=== PATIENT | female | born 1980 | race Caucasian/White ===

== ENCOUNTER 2018-05-17 04:13 | Inpatient (IN) | payer BC ==
[2018-05-17] MEDS ORDERED: Nalbuphine 20 MG/ML 1 ML Syringe IVPUSH PRN (04:58)
[2018-05-17] MEDS ORDERED: ceFAZolin 2 GM in Premix Bag 1 BAG IV ONE (05:00)
[2018-05-17] MEDS ORDERED: Ondansetron 4 MG/2 ML SDV IVPUSH PRN ×2 (05:03→07:38)
[2018-05-17] MEDS ORDERED: Sodium Chloride 0.9% 10 ML Syringe FLUSH PRN (05:03)
[2018-05-17] MEDS ORDERED: Oxytocin/Lactated Ringers 10 UNIT/1,000 ML BAG IV SCH ×2 (05:15)
[2018-05-17] MEDS ORDERED: ceFAZolin/Dextrose,Iso-Osmotic 2 GM/50 ML Duplex Bag IV ONE (05:32)
[2018-05-17] MEDS: Lactated Ringers 1,000 ML IV SCH ×4 (06:01→21:06)
[2018-05-17] MEDS ORDERED: ePHEDrine 50 MG/ML SDV IVPUSH PRN (07:38)
--- NOTE | 2018-05-17 07:41 | PCM.PREANE ---
Preanesthetic Assessment - Anesthesia/Transfusion/Family Hx Anesthesia History: Prior Anesthesia Without Reaction Family History of Anesthesia Reaction: No Transfusion History: No Prior Transfusion(s) Intubation History: Unknown - Review of Systems General: No Symptoms Pulmonary: No Symptoms Cardiovascular: No Symptoms (PIH noted.), Dyspnea on Exertion Gastrointestinal: No Symptoms (GERD) Neurological: Headache (migraines) Other: Reports: Easy Bruising, Diabetes (Gestational DM with diet controlled treatment), Depression, Anxiety - Physical Assessment NPO Status Date: 05/17/18 NPO Status Time: 08:30 Pulse: 120 O2 Sat by Pulse Oximetry: 99 Respiratory Rate: 16 Blood Pressure: 143/86 Temperature: 36.9 C Height: 1.6 m Weight: 127.006 kg ASA Class: 2 Mental Status: Alert & Oriented x3 Airway Class: Mallampati = 3 Dentition: Reports: Normal Dentition, Caries Thyro-Mental Finger Breadths: 3 Mouth Opening Finger Breadths: 2 ROM/Head Extension: Full Lungs: Clear to Auscultation, Normal Respiratory Effort Cardiovascular: Regular Rate, Regular Rhythm, No Murmurs - Lab Values: Laboratory Last Values WBC 9.25 K/mm3 (3.98-10.04) 05/17/18 05:30 RBC 4.89 M/mm3 (3.98-5.22) 05/17/18 05:30 Hgb 11.5 gm/L (11.2-15.7) 05/17/18 05:30 Hct 36.0 % (34.1-44.9) 05/17/18 05:30 MCV 73.6 fl (79.4-94.8) L 05/17/18 05:30 MCH 23.5 pg (25.6-32.2) L 05/17/18 05:30 MCHC 31.9 g/dl (32.2-35.5) L 05/17/18 05:30 RDW Std Deviation 44.4 fL (36.4-46.3) 05/17/18 05:30 Plt Count 248 K/mm3 (182-369) 05/17/18 05:30 MPV 11.2 fl (9.4-12.3) 05/17/18 05:30 Neut % (Auto) 80.9 % (34.0-71.1) H 05/17/18 05:30 Lymph % (Auto) 11.5 % (19.3-51.7) L 05/17/18 05:30 [place] % (Auto) 6.6 % (4.7-12.5) 05/17/18 05:30 Eos % (Auto) 0.6 (0.7-5.8) L 05/17/18 05:30 Baso % (Auto) 0.2 % (0.1-1.2) 05/17/18 05:30 Neut # (Auto) 7.48 K/mm3 (1.56-6.13) H 05/17/18 05:30 Lymph # (Auto) 1.06 K/mm3 (1.18-3.74) L 05/17/18 05:30 [place] # (Auto) 0.61 K/mm3 (0.24-0.36) H 05/17/18 05:30 Eos # (Auto) 0.06 K/mm3 (0.04-0.36) 05/17/18 05:30 Baso # (Auto) 0.02 K/mm3 (0.01-0.08) 05/17/18 05:30 Manual Slide Review Abnormal smear 05/17/18 05:30 BUN 10 mg/dL (7-18) 05/17/18 05:30 Creatinine 0.8 mg/dL (0.55-1.02) 05/17/18 05:30 Est Cr Clr Drug Dosing 81.19 mL/min 05/17/18 05:30 Estimated GFR (MDRD) > 60 mL/min (>60) 05/17/18 05:30 Uric Acid 4.3 mg/dL (2.6-6.0) 05/17/18 05:30 AST 17 U/L (15-37) 05/17/18 05:30 ALT 23 U/L (14-59) 05/17/18 05:30 Lactate Dehydrogenase 133 U/L (81-234) 05/17/18 05:30 Labs reviewed and noted and within acceptable ranges to proceed with epidural if desired. - Allergies Allergies/Adverse Reactions: Allergies Allergy/AdvReac Type Severity Reaction Status Date / Time Penicillins Allergy Rash Verified 05/17/18 04:57 - Anesthesia Plan Pre-Op Medication Ordered: None - Acknowledgements Anesthesia Type Planned: Epidural Pt an Appropriate Candidate for the Planned Anesthesia: Yes Alternatives and Risks of Anesthesia Discussed w Pt/Guardian: Yes Pt/Guardian Understands and Agrees with Anesthesia Plan: Yes PreAnesthesia Questionnaire AD TAKER History: Reports: Spontaneous Other OB/BYN History: SAB x4 Endocrine/Metabolic History: Reports: Diabetes, Gestational - Past Surgical History Female Surgical History: Reports: Other (See Below) Other Female Surgeries/Procedures: hysteroscopy - SUBSTANCE USE Smoking Status *Q: Never Smoker Second Hand Smoke Exposure: No Recreational Drug Use History: No - CURRENT (IN HOUSE) MEDS Current Meds: Current Medications Cefazolin Sodium/Dextrose 1 gm (/ Premix) 50 mls @ 100 mls/hr IV Q8H MARQUES Lactated Ringer's (Ringers, Lactated) 1,000 mls @ 100 mls/hr IV ASDIRECTED MARQUES Last Admin: 05/17/18 06:01 Dose: 100 mls/hr Oxytocin/Lactated Ringer's (Pitocin In Lr 10 Units/1,000 Ml) 10 unit in 1,000 mls @ 12 mls/hr IV TITRATE MARQUES; Protocol Last Admin: 05/17/18 07:31 Dose: 2 munits/min, 12 mls/hr Oxytocin/Lactated Ringer's (Pitocin In Lr 10 Units/1,000 Ml) 10 unit in 1,000 mls @ 500 mls/hr IV .CONTINUOUS MARQUES Nalbuphine HCl (Nubain) 10 mg IVPUSH Q2H PRN PRN Reason: pain Ondansetron HCl (Zofran) 4 mg IVPUSH Q4H PRN PRN Reason: Nausea/Vomiting Sodium Chloride (Saline Flush) 10 ml FLUSH ASDIRECTED PRN PRN Reason: Keep Vein Open Discontinued Medications Cefazolin Sodium/Dextrose (Ancef) Confirm Administered Dose 2 gm IV .STK-MED ONE Stop: 05/17/18 05:33 Last Admin: 05/17/18 06:02 Dose: Not Given Cefazolin Sodium/Dextrose 2 gm (/ Premix) 50 mls @ 100 mls/hr IV ONETIME ONE Stop: 05/17/18 05:29 Last Admin: 05/17/18 06:02 Dose: 100 mls/hr
[2018-05-17] MEDS ORDERED: Bupivacaine/fentaNYL/NS 100 ML Bag EPIDUR SCH (07:45)
[2018-05-17] MEDS ORDERED: Phenylephrine 1 MG in Sodium Chloride 0.9% 10 ML IV SCH (07:45)
[2018-05-17] MEDS: fentaNYL 100 MCG/2 ML SDV EPIDUR PRN (12:05)
[2018-05-17] MEDS: ceFAZolin 1 GM in Premix Bag 1 BAG IV SCH ×2 (14:06→21:04)
[2018-05-17] MEDS ORDERED: Acetaminophen 325 MG Tab PO PRN (14:22)
[2018-05-18] MEDS: fentaNYL 100 MCG/2 ML SDV EPIDUR PRN ×2 (00:35→08:14)
--- NOTE | 2018-05-18 00:45 | PCM.LDHP ---
L&D History of Present Illness - General Date of Service: 05/18/18 Admit Problem/Dx: Patient Status Order with Admit Dx/Problem 05/17/18 07:44 Patient Status [ADT] Routine Admission Diagnosis/Problem Admission Diagnosis/Problem Source of Information: Patient History Limitations: Reports: No Limitations - History of Present Illness Introduction:: 37 year at 38w1d here with SROM. Irregular painless contractions. PNC with myself complicated by possible uterine synecia and gestational diabetes. 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 Other OB/BYN History: SAB x4 Endocrine/Metabolic History: Reports: Diabetes, Gestational - Past Surgical History Female Surgical History: Reports: Other (See Below) Other Female Surgeries/Procedures: hysteroscopy Social & Family History - Tobacco Use Smoking Status *Q: Never Smoker Second Hand Smoke Exposure: No - Recreational Drug Use Recreational Drug Use: No H&P Review of Systems - Review of Systems: Review Of Systems: See Below General: Reports: No Symptoms HEENT: Reports: No Symptoms Pulmonary: Reports: No Symptoms Cardiovascular: Reports: No Symptoms Gastrointestinal: Reports: No Symptoms Genitourinary: Reports: No Symptoms Musculoskeletal: Reports: No Symptoms Skin: Reports: No Symptoms Psychiatric: Reports: No Symptoms Neurological: Reports: No Symptoms Hematologic/Lymphatic: Reports: No Symptoms Immunologic: Reports: No Symptoms L&D Exam - Exam Exam: See Below - Vital Signs Vital Signs: Last Vital Signs Temp 36.9 C 05/17/18 09:01 Pulse 120 H 05/17/18 09:01 Resp 16 05/17/18 09:01 BP 143/86 H 05/17/18 09:01 Pulse Ox 99 05/17/18 09:01 Weight: 127.006 kg - OB Specific Contraction Intensity: Moderate Movement: Active Heart Rate (FHR) Variability: Moderate (6-25 bmp) Presentation: Vertex - Sanders Score Sanders Score Cervix Position: Midposition Sanders Score Consistency: Medium Sanders Score Effacement: 51-70% Sanders Score Dilation: 3-4 cm Sanders Score 's Station: -2 Sanders Score Total: 7 - Exam General: Alert, Oriented HEENT: PERRLA, Conjunctiva Clear, EACs Clear, EOMI, Hearing Intact, Mucosa Moist & [place], Nares Patent, Normal Nasal Septum, Posterior Pharynx Clear, TMs Clear Neck: Supple, Trachea Midline Lungs: Clear to Auscultation, Normal Respiratory Effort Cardiovascular: Regular Rate, Regular Rhythm GI/Abdominal Exam: Normal Bowel Sounds, Soft, Non-Tender, No Organomegaly, No Distention, No Abnormal Bruit, No Mass, Pelvis Stable Genitourinary: Normal external exam, Normal bimanual exam, Normal speculum exam Back Exam: Normal Inspection, Full Range of Motion Extremities: Normal Inspection, Normal Range of Motion, Non-Tender, No Pedal Edema, Normal Capillary Refill Skin: Warm, Dry, Intact Neurological: Cranial Nerves Intact, Reflexes Equal Bilateral Psychiatric: Alert, Normal Affect, Normal Mood - Patient Data Lab Results Last 24 hrs: Laboratory Results - last 24 hr 05/17/18 05/17/18 05/17/18 Range/Units 05:30 05:30 08:38 WBC 9.25 (3.98-10.04) K/mm3 RBC 4.89 (3.98-5.22) M/mm3 Hgb 11.5 (11.2-15.7) gm/L Hct 36.0 (34.1-44.9) % MCV 73.6 L (79.4-94.8) fl MCH 23.5 L (25.6-32.2) pg MCHC 31.9 L (32.2-35.5) g/dl RDW Std Deviation 44.4 (36.4-46.3) fL Plt Count 248 (182-369) K/mm3 MPV 11.2 (9.4-12.3) fl Neut % (Auto) 80.9 H (34.0-71.1) % Lymph % (Auto) 11.5 L (19.3-51.7) % [place] % (Auto) 6.6 (4.7-12.5) % Eos % (Auto) 0.6 L (0.7-5.8) Baso % (Auto) 0.2 (0.1-1.2) % Neut # (Auto) 7.48 H (1.56-6.13) K/mm3 Lymph # (Auto) 1.06 L (1.18-3.74) K/mm3 [place] # (Auto) 0.61 H (0.24-0.36) K/mm3 Eos # (Auto) 0.06 (0.04-0.36) K/mm3 Baso # (Auto) 0.02 (0.01-0.08) K/mm3 Manual Slide Review Abnormal smear BUN 10 (7-18) mg/dL Creatinine 0.8 (0.55-1.02) mg/dL Est Cr Clr Drug Dosing 81.19 mL/min Estimated GFR (MDRD) > 60 (>60) mL/min POC Glucose 96 (70-105) mg/dL Uric Acid 4.3 (2.6-6.0) mg/dL AST 17 (15-37) U/L ALT 23 (14-59) U/L Lactate Dehydrogenase 133 (81-234) U/L 05/17/18 05/17/18 05/17/18 Range/Units 11:08 15:59 18:27 WBC (3.98-10.04) K/mm3 RBC (3.98-5.22) M/mm3 Hgb (11.2-15.7) gm/L Hct (34.1-44.9) % MCV (79.4-94.8) fl MCH (25.6-32.2) pg MCHC (32.2-35.5) g/dl RDW Std Deviation (36.4-46.3) fL Plt Count (182-369) K/mm3 MPV (9.4-12.3) fl Neut % (Auto) (34.0-71.1) % Lymph % (Auto) (19.3-51.7) % [place] % (Auto) (4.7-12.5) % Eos % (Auto) (0.7-5.8) Baso % (Auto) (0.1-1.2) % Neut # (Auto) (1.56-6.13) K/mm3 Lymph # (Auto) (1.18-3.74) K/mm3 [place] # (Auto) (0.24-0.36) K/mm3 Eos # (Auto) (0.04-0.36) K/mm3 Baso # (Auto) (0.01-0.08) K/mm3 Manual Slide Review BUN (7-18) mg/dL Creatinine (0.55-1.02) mg/dL Est Cr Clr Drug Dosing mL/min Estimated GFR (MDRD) (>60) mL/min POC Glucose 85 75 97 (70-105) mg/dL Uric Acid (2.6-6.0) mg/dL AST (15-37) U/L ALT (14-59) U/L Lactate Dehydrogenase (81-234) U/L 05/17/18 Range/Units 21:11 WBC (3.98-10.04) K/mm3 RBC (3.98-5.22) M/mm3 Hgb (11.2-15.7) gm/L Hct (34.1-44.9) % MCV (79.4-94.8) fl MCH (25.6-32.2) pg MCHC (32.2-35.5) g/dl RDW Std Deviation (36.4-46.3) fL Plt Count (182-369) K/mm3 MPV (9.4-12.3) fl Neut % (Auto) (34.0-71.1) % Lymph % (Auto) (19.3-51.7) % [place] % (Auto) (4.7-12.5) % Eos % (Auto) (0.7-5.8) Baso % (Auto) (0.1-1.2) % Neut # (Auto) (1.56-6.13) K/mm3 Lymph # (Auto) (1.18-3.74) K/mm3 [place] # (Auto) (0.24-0.36) K/mm3 Eos # (Auto) (0.04-0.36) K/mm3 Baso # (Auto) (0.01-0.08) K/mm3 Manual Slide Review BUN (7-18) mg/dL Creatinine (0.55-1.02) mg/dL Est Cr Clr Drug Dosing mL/min Estimated GFR (MDRD) (>60) mL/min POC Glucose 100 (70-105) mg/dL Uric Acid (2.6-6.0) mg/dL AST (15-37) U/L ALT (14-59) U/L Lactate Dehydrogenase (81-234) U/L Result Diagrams: 05/17/18 05:30 05/17/18 05:30 Problem List Initiated/Reviewed/Updated: Yes Orders Last 24hrs: Active Orders 24 hr Category Date Time Status Patient Status [ADT] Routine ADT 05/17/18 07:44 Active Activity as Tolerated [RC] PFP Care 05/17/18 04:58 Active Communication Order [RC] ASDIRECTED Care 05/17/18 04:58 Active Communication Order [RC] ASDIRECTED Care 05/17/18 09:16 Active Heart Tones [RC] ASDIRECTED Care 05/17/18 05:06 Active Notify Provider [RC] ASDIRECTED Care 05/17/18 07:38 Active Notify Provider [RC] PFP Care 05/17/18 04:58 Active Notify Provider [RC] PRN Care 05/17/18 04:58 Active Oxygen Therapy [RC] ASDIRECTED Care 05/17/18 07:38 Active Peripheral IV Care [RC] . DIRECTED Care 05/17/18 05:06 Active Pulse Oximetry [RC] ASDIRECTED Care 05/17/18 07:38 Active Pump Management, Intrathecal [RC] ASDIRECTED Care 05/17/18 05:06 Active Vital Signs [RC] PER UNIT ROUTINE Care 05/17/18 04:58 Active RAPID PLASMA REAGIN,RPR [CHEM] Routine Lab 05/17/18 05:30 Received Acetaminophen [Tylenol] Med 05/17/18 14:22 Active 650 mg PO Q4H PRN Bupivacaine/fentaNYL/NS [fentaNYL/Bupivacaine/NS 2 MCG- Med 05/17/18 07:45 Active 0.125% 100 ML] 100 ml EPIDUR ASDIRECTED Lactated Ringers [Ringers, Lactated] 1,000 ml Med 05/17/18 05:00 Active IV ASDIRECTED Nalbuphine [Nubain] Med 05/17/18 04:58 Active 10 mg IVPUSH Q2H PRN Ondansetron [Zofran] Med 05/17/18 07:38 Active 4 mg IVPUSH ONETIME PRN Ondansetron [Zofran] Med 05/17/18 05:03 Active 4 mg IVPUSH Q4H PRN Oxytocin/Lactated Ringers [Pitocin in LR 10 Units/1,000 Med 05/17/18 05:15 Active ML] 10 unit in 1,000 ml IV .CONTINUOUS Oxytocin/Lactated Ringers [Pitocin in LR 10 Units/1,000 Med 05/17/18 05:15 Active ML] 10 unit in 1,000 ml IV TITRATE Phenylephrine [Richard-Synephrine] 1 mg Med 05/17/18 07:45 Active Sodium Chloride 0.9% [Normal Saline] 10 ml IV TITRATE Sodium Chloride 0.9% [Saline Flush] Med 05/17/18 05:03 Active 10 ml FLUSH ASDIRECTED PRN ceFAZolin [Ancef] 1 gm Med 05/17/18 13:00 Active Premix Bag 1 bag IV Q8H ePHEDrine [ePHEDrine Sulfate] Med 05/17/18 07:38 Active 5 mg IVPUSH ASDIRECTED PRN fentaNYL [Sublimaze] Med 05/17/18 07:38 Active 100 mcg EPIDUR Q3H PRN Electronic Heart Tones Ext w TOCO [WOMSER] Oth 05/17/18 04:58 Ordered Routine Electronic Heart Tones Internal [WOMSER] Per Unit Oth 05/17/18 04:58 Ordered Routine PIH Panel [OM.PC] Routine Oth 05/17/18 05:03 Ordered Peripheral IV Insertion Adult [OM.PC] Routine Oth 05/17/18 04:58 Ordered Resuscitation Status Routine Resus Stat 05/17/18 04:58 Ordered Medication Orders Acetaminophen (Tylenol) 650 mg PO Q4H PRN PRN Reason: Pain (mild 1-3) Last Admin: 05/17/18 14:42 Dose: 650 mg Ephedrine Sulfate (Ephedrine Sulfate) 5 mg IVPUSH ASDIRECTED PRN PRN Reason: Hypotension Fentanyl (Sublimaze) 100 mcg EPIDUR Q3H PRN PRN Reason: Pain Last Admin: 05/18/18 00:35 Dose: 100 mcg Admin: 05/17/18 12:05 Dose: 100 mcg Fentanyl/Bupivacaine HCl (Fentanyl/Bupivacaine/Ns 2 Mcg-0.125% 100 Ml) 100 ml EPIDUR ASDIRECTED MARQUES Last Admin: 05/17/18 12:05 Dose: 100 ml Cefazolin Sodium/Dextrose 1 gm (/ Premix) 50 mls @ 100 mls/hr IV Q8H [facility] Last Admin: 05/17/18 21:04 Dose: 100 mls/hr Infusion: 05/17/18 14:36 Dose: 100 mls/hr Admin: 05/17/18 14:06 Dose: 100 mls/hr Lactated Ringer's (Ringers, Lactated) 1,000 mls @ 100 mls/hr IV ASDIRECTED MARQUES Last Admin: 05/17/18 21:06 Dose: 100 mls/hr Infusion: 05/17/18 21:06 Dose: 100 mls/hr Admin: 05/17/18 14:05 Dose: 100 mls/hr Infusion: 05/17/18 14:05 Dose: 100 mls/hr Admin: 05/17/18 12:19 Dose: 100 mls/hr Infusion: 05/17/18 12:19 Dose: 100 mls/hr Admin: 05/17/18 06:01 Dose: 100 mls/hr Oxytocin/Lactated Ringer's (Pitocin In Lr 10 Units/1,000 Ml) 10 unit in 1,000 mls @ 12 mls/hr IV TITRATE MARQUES; Protocol Last Titration: 05/17/18 23:00 Dose: 8 munits/min, 48 mls/hr Titration: 05/17/18 22:20 Dose: 6 munits/min, 36 mls/hr Titration: 05/17/18 20:50 Dose: 5 munits/min, 30 mls/hr Titration: 05/17/18 20:20 Dose: 4 munits/min, 24 mls/hr Titration: 05/17/18 19:44 Dose: 2 munits/min, 12 mls/hr Titration: 05/17/18 15:06 Dose: 0 munits/min, 0 mls/hr Titration: 05/17/18 14:25 Dose: 4 munits/min, 24 mls/hr Titration: 05/17/18 14:10 Dose: 8 munits/min, 48 mls/hr Titration: 05/17/18 10:00 Dose: 6 munits/min, 36 mls/hr Titration: 05/17/18 08:05 Dose: 4 munits/min, 24 mls/hr Admin: 05/17/18 07:31 Dose: 2 munits/min, 12 mls/hr Oxytocin/Lactated Ringer's (Pitocin In Lr 10 Units/1,000 Ml) 10 unit in 1,000 mls @ 500 mls/hr IV .CONTINUOUS MARQUES Phenylephrine HCl 1 mg/ Sodium (Chloride) 10.1 mls @ 1 mls/sec IV TITRATE MARQUES; Protocol Nalbuphine HCl (Nubain) 10 mg IVPUSH Q2H PRN PRN Reason: pain Ondansetron HCl (Zofran) 4 mg IVPUSH Q4H PRN PRN Reason: Nausea/Vomiting Ondansetron HCl (Zofran) 4 mg IVPUSH ONETIME PRN PRN Reason: Nausea/Vomiting Sodium Chloride (Saline Flush) 10 ml FLUSH ASDIRECTED PRN PRN Reason: Keep Vein Open Assessment/Plan Comment:: 37 year old here with SROM. Doing well. Pitocin. Anticipate unless otherwise indicated
--- NOTE | 2018-05-18 00:47 | PCM.PNLD ---
Labor Progress Note - VS & Meds Vital Signs: Last Vital Signs Temp 36.9 C 05/17/18 09:01 Pulse 120 H 05/17/18 09:01 Resp 16 05/17/18 09:01 BP 143/86 H 05/17/18 09:01 Pulse Ox 99 05/17/18 09:01 Active Medications: Current Medications Acetaminophen (Tylenol) 650 mg PO Q4H PRN PRN Reason: Pain (mild 1-3) Last Admin: 05/17/18 14:42 Dose: 650 mg Ephedrine Sulfate (Ephedrine Sulfate) 5 mg IVPUSH ASDIRECTED PRN PRN Reason: Hypotension Fentanyl (Sublimaze) 100 mcg EPIDUR Q3H PRN PRN Reason: Pain Last Admin: 05/18/18 00:35 Dose: 100 mcg Fentanyl/Bupivacaine HCl (Fentanyl/Bupivacaine/Ns 2 Mcg-0.125% 100 Ml) 100 ml EPIDUR ASDIRECTED MARQUES Last Admin: 05/17/18 12:05 Dose: 100 ml Cefazolin Sodium/Dextrose 1 gm (/ Premix) 50 mls @ 100 mls/hr IV Q8H MARQUES Last Admin: 05/17/18 21:04 Dose: 100 mls/hr Lactated Ringer's (Ringers, Lactated) 1,000 mls @ 100 mls/hr IV ASDIRECTED MARQUES Last Admin: 05/17/18 21:06 Dose: 100 mls/hr Oxytocin/Lactated Ringer's (Pitocin In Lr 10 Units/1,000 Ml) 10 unit in 1,000 mls @ 12 mls/hr IV TITRATE MARQUES; Protocol Last Titration: 05/17/18 23:00 Dose: 8 munits/min, 48 mls/hr Oxytocin/Lactated Ringer's (Pitocin In Lr 10 Units/1,000 Ml) 10 unit in 1,000 mls @ 500 mls/hr IV .CONTINUOUS MARQUES Phenylephrine HCl 1 mg/ Sodium (Chloride) 10.1 mls @ 1 mls/sec IV TITRATE MARQUES; Protocol Nalbuphine HCl (Nubain) 10 mg IVPUSH Q2H PRN PRN Reason: pain Ondansetron HCl (Zofran) 4 mg IVPUSH Q4H PRN PRN Reason: Nausea/Vomiting Ondansetron HCl (Zofran) 4 mg IVPUSH ONETIME PRN PRN Reason: Nausea/Vomiting Sodium Chloride (Saline Flush) 10 ml FLUSH ASDIRECTED PRN PRN Reason: Keep Vein Open Discontinued Medications Cefazolin Sodium/Dextrose (Ancef) Confirm Administered Dose 2 gm IV .STK-MED ONE Stop: 05/17/18 05:33 Last Admin: 05/17/18 06:02 Dose: Not Given Cefazolin Sodium/Dextrose 2 gm (/ Premix) 50 mls @ 100 mls/hr IV ONETIME ONE Stop: 05/17/18 05:29 Last Admin: 05/17/18 06:02 Dose: 100 mls/hr - Uterine Contractions Uterine Monitoring Mode: External [place] Contraction Intensity: Moderate Uterine Resting Tone: Soft - Monitoring Monitor Mode: External Ultrasound Heart Rate (FHR) Baseline: 140 Heart Rate (FHR) Variability: Moderate (6-25 bmp) Accelerations: Present, 15x15 Decelerations: None Strip Review: Category I - Vaginal Exam Dilation (cm): 3 Effacement (Percent): 80 Station: -3 - Labor Progress (Free Text) Labor Progress: Pitocin off as occasional early vs late decels. Some change. Restart if no change
--- NOTE | 2018-05-18 00:49 | PCM.PNLD ---
Labor Progress Note - VS & Meds Vital Signs: Last Vital Signs Temp 36.9 C 05/17/18 09:01 Pulse 120 H 05/17/18 09:01 Resp 16 05/17/18 09:01 BP 143/86 H 05/17/18 09:01 Pulse Ox 99 05/17/18 09:01 Active Medications: Current Medications Acetaminophen (Tylenol) 650 mg PO Q4H PRN PRN Reason: Pain (mild 1-3) Last Admin: 05/17/18 14:42 Dose: 650 mg Ephedrine Sulfate (Ephedrine Sulfate) 5 mg IVPUSH ASDIRECTED PRN PRN Reason: Hypotension Fentanyl (Sublimaze) 100 mcg EPIDUR Q3H PRN PRN Reason: Pain Last Admin: 05/18/18 00:35 Dose: 100 mcg Fentanyl/Bupivacaine HCl (Fentanyl/Bupivacaine/Ns 2 Mcg-0.125% 100 Ml) 100 ml EPIDUR ASDIRECTED MARQUES Last Admin: 05/17/18 12:05 Dose: 100 ml Cefazolin Sodium/Dextrose 1 gm (/ Premix) 50 mls @ 100 mls/hr IV Q8H MARQUES Last Admin: 05/17/18 21:04 Dose: 100 mls/hr Lactated Ringer's (Ringers, Lactated) 1,000 mls @ 100 mls/hr IV ASDIRECTED MARQUES Last Admin: 05/17/18 21:06 Dose: 100 mls/hr Oxytocin/Lactated Ringer's (Pitocin In Lr 10 Units/1,000 Ml) 10 unit in 1,000 mls @ 12 mls/hr IV TITRATE MARQUES; Protocol Last Titration: 05/17/18 23:00 Dose: 8 munits/min, 48 mls/hr Oxytocin/Lactated Ringer's (Pitocin In Lr 10 Units/1,000 Ml) 10 unit in 1,000 mls @ 500 mls/hr IV .CONTINUOUS MARQUES Phenylephrine HCl 1 mg/ Sodium (Chloride) 10.1 mls @ 1 mls/sec IV TITRATE MARQUES; Protocol Nalbuphine HCl (Nubain) 10 mg IVPUSH Q2H PRN PRN Reason: pain Ondansetron HCl (Zofran) 4 mg IVPUSH Q4H PRN PRN Reason: Nausea/Vomiting Ondansetron HCl (Zofran) 4 mg IVPUSH ONETIME PRN PRN Reason: Nausea/Vomiting Sodium Chloride (Saline Flush) 10 ml FLUSH ASDIRECTED PRN PRN Reason: Keep Vein Open Discontinued Medications Cefazolin Sodium/Dextrose (Ancef) Confirm Administered Dose 2 gm IV .STK-MED ONE Stop: 05/17/18 05:33 Last Admin: 05/17/18 06:02 Dose: Not Given Cefazolin Sodium/Dextrose 2 gm (/ Premix) 50 mls @ 100 mls/hr IV ONETIME ONE Stop: 05/17/18 05:29 Last Admin: 05/17/18 06:02 Dose: 100 mls/hr - Uterine Contractions Uterine Monitoring Mode: External [place] Contraction Intensity: Moderate Uterine Resting Tone: Soft - Monitoring Monitor Mode: External Ultrasound Heart Rate (FHR) Baseline: 140 Heart Rate (FHR) Variability: Moderate (6-25 bmp) Accelerations: Present, 15x15 Decelerations: Variable Strip Review: Category I - Vaginal Exam Dilation (cm): 4 Effacement (Percent): 80 Station: -3 Cervical Position: Midposition - Labor Progress (Free Text) Labor Progress: Doing well. Tired with some spot of pain in epidural. Anesthesia here. IUPC placed. Reassuring FHT currently.
[2018-05-18] MEDS ORDERED: Bupivacaine 0.25% 10 ML SDV ONE (01:00)
[2018-05-18] MEDS ORDERED: Lidocaine 1.5% with EPINEPHrine 1:200,000 5 ML Amp ONE (01:00)
[2018-05-18] MEDS: Lactated Ringers 1,000 ML IV SCH ×4 (01:07→09:31)
[2018-05-18] MEDS: ceFAZolin 1 GM in Premix Bag 1 BAG IV SCH (05:00)
[2018-05-18] MEDS ORDERED: Lidocaine 1% 50 ML MDV ONE (10:49)
--- NOTE | 2018-05-18 12:50 | PCM.SN ---
- Free Text/Narrative Note: Delivery note:
[2018-05-18] MEDS ORDERED: Acetaminophen 325 MG Tab PO PRN (13:49)
[2018-05-18] MEDS ORDERED: Docusate Sodium 100 MG Cap PO PRN (13:49)
[2018-05-18] MEDS ORDERED: Benzocaine/Menthol 20%-0.5% Spray 56 GM Canister TOP PRN (13:49)
[2018-05-18] MEDS ORDERED: Witch Hazel Medicated Pads 100/Jar TOP PRN (13:49)
[2018-05-18] MEDS ORDERED: Lanolin 100% Cream 7 GM Tube TOP PRN (13:49)
[2018-05-18] MEDS: Ibuprofen 600 MG Tab PO PRN (15:58)
[2018-05-19] MEDS: Ibuprofen 600 MG Tab PO PRN ×2 (02:06→22:41)
[2018-05-19] MEDS: Prenatal Multivitamin with Calcium/Folic Acid/Iron Tab PO SCH (21:57)
[2018-05-20] MEDS: Ibuprofen 600 MG Tab PO PRN (03:44)
--- NOTE | 2018-05-20 06:52 | PCM.DCSUM1 ---
Discharge Summary - Hospital Course Diagnosis: Stroke: No - Discharge Data Discharge Date: 05/20/18 Discharge Disposition: Home, Self-Care 01 Condition: Good - Patient Instructions Diet: Usual Diet as Tolerated Activity: No Strenuous Activities Driving: May Drive Today Showering/Bathing: May Shower Wound/Incision Care: Keep Operative Site/Wound Site Clean and Dry, Change Dressing Daily, Do NOT Change Dressing Notify Provider of: Fever, Increased Pain, Swelling and Redness, Drainage, Nausea and/or Vomiting - Discharge Plan *PRESCRIPTION DRUG MONITORING PROGRAM REVIEWED*: No *COPY OF PRESCRIPTION DRUG MONITORING REPORT IN PATIENT FLORIDALMA: No Patient Handouts: Home Care Instructions for Mom - Discharge Summary/Plan Comment DC Time >30 min.: No - General Info Date of Service: 05/20/18 Functional Status: Reports: Pain Controlled - Review of Systems General: Reports: No Symptoms HEENT: Reports: No Symptoms Pulmonary: Reports: No Symptoms Cardiovascular: Reports: No Symptoms Gastrointestinal: Reports: No Symptoms Genitourinary: Reports: No Symptoms Musculoskeletal: Reports: No Symptoms Skin: Reports: No Symptoms Neurological: Reports: No Symptoms Psychiatric: Reports: No Symptoms - Patient Data Vitals - Most Recent: Last Vital Signs Temp 36.7 C 05/19/18 20:23 Pulse 106 H 05/19/18 20:23 Resp 16 05/19/18 20:23 BP 145/85 H 05/19/18 20:23 Pulse Ox 100 05/19/18 20:23 Weight - Most Recent: 127.006 kg I&O - Last 24 hours: Intake & Output 05/19/18 05/19/18 05/20/18 14:59 22:59 06:59 Intake Total 120 240 Balance 120 240 Med Orders - Current: Current Medications Acetaminophen (Tylenol) 650 mg PO Q4H PRN PRN Reason: mild pain or fever Benzocaine/Menthol (Dermoplast Pain Relief Hunker) 0 gm TOP ASDIRECTED PRN PRN Reason: Perineal Comfort Measure Docusate Sodium (Colace) 100 mg PO BID PRN PRN Reason: Constipation Last Admin: 05/18/18 15:59 Dose: 100 mg Emollient Ointment (Lansinoh Hpa) 0 gm TOP ASDIRECTED PRN PRN Reason: Sore Nipples Ibuprofen (Motrin) 600 mg PO Q4H PRN PRN Reason: Mild pain or fever Last Admin: 05/20/18 03:44 Dose: 600 mg Prenat Multivit/Falls/Iron/Folic Ac ( Plus Iron) 1 each PO DAILY MARQUES Last Admin: 05/19/18 21:57 Dose: Not Given Patito Mendiola (Tucks) 1 pad TOP ASDIRECTED PRN PRN Reason: Hemorrhoid pain Discontinued Medications Acetaminophen (Tylenol) 650 mg PO Q4H PRN PRN Reason: Pain (mild 1-3) Last Admin: 05/17/18 14:42 Dose: 650 mg Bupivacaine HCl (Sensorcaine-Mpf 0.25%) 30 ml .ROUTE .STK-MED ONE Stop: 05/18/18 01:01 Cefazolin Sodium/Dextrose (Ancef) Confirm Administered Dose 2 gm IV .STK-MED ONE Stop: 05/17/18 05:33 Last Admin: 05/17/18 06:02 Dose: Not Given Ephedrine Sulfate (Ephedrine Sulfate) 5 mg IVPUSH ASDIRECTED PRN PRN Reason: Hypotension Fentanyl (Sublimaze) 100 mcg EPIDUR Q3H PRN PRN Reason: Pain Last Admin: 05/18/18 08:14 Dose: 100 mcg Fentanyl/Bupivacaine HCl (Fentanyl/Bupivacaine/Ns 2 Mcg-0.125% 100 Ml) 100 ml EPIDUR ASDIRECTED MARQUES Last Admin: 05/17/18 12:05 Dose: 100 ml Cefazolin Sodium/Dextrose 2 gm (/ Premix) 50 mls @ 100 mls/hr IV ONETIME ONE Stop: 05/17/18 05:29 Last Admin: 05/17/18 06:02 Dose: 100 mls/hr Cefazolin Sodium/Dextrose 1 gm (/ Premix) 50 mls @ 100 mls/hr IV Q8H MARQUES Last Admin: 05/18/18 05:00 Dose: 100 mls/hr Lactated Ringer's (Ringers, Lactated) 1,000 mls @ 100 mls/hr IV ASDIRECTED MARQUES Last Admin: 05/18/18 09:31 Dose: 100 mls/hr Oxytocin/Lactated Ringer's (Pitocin In Lr 10 Units/1,000 Ml) 10 unit in 1,000 mls @ 12 mls/hr IV TITRATE MARQUES; Protocol Last Titration: 05/18/18 03:13 Dose: 10 munits/min, 60 mls/hr Oxytocin/Lactated Ringer's (Pitocin In Lr 10 Units/1,000 Ml) 10 unit in 1,000 mls @ 500 mls/hr IV .CONTINUOUS MARQUES Phenylephrine HCl 1 mg/ Sodium (Chloride) 10.1 mls @ 1 mls/sec IV TITRATE MARQUES; Protocol Lidocaine HCl (Xylocaine 1%) Confirm Administered Dose 50 ml .ROUTE .[employer] Agent ONE Stop: 05/18/18 10:50 Last Admin: 05/19/18 11:44 Dose: Not Given Lidocaine/Epinephrine (Xylocaine-Mpf 1.5% W/Epinephrine 1:200,000) 10 ml .ROUTE .[employer] Agent ONE Stop: 05/18/18 01:01 Nalbuphine HCl (Nubain) 10 mg IVPUSH Q2H PRN PRN Reason: pain Last Admin: 05/18/18 07:35 Dose: 10 mg Ondansetron HCl (Zofran) 4 mg IVPUSH Q4H PRN PRN Reason: Nausea/Vomiting Ondansetron HCl (Zofran) 4 mg IVPUSH ONETIME PRN PRN Reason: Nausea/Vomiting Sodium Chloride (Saline Flush) 10 ml FLUSH ASDIRECTED PRN PRN Reason: Keep Vein Open - Exam General: Reports: Alert, Oriented HEENT: Reports: Pupils Equal, Pupils Reactive, EOMI, Mucous Membr. Moist/[place] Neck: Reports: Supple Lungs: Reports: Clear to Auscultation, Normal Respiratory Effort Cardiovascular: Reports: Regular Rate, Regular Rhythm GI/Abdominal Exam: Normal Bowel Sounds, Soft, Non-Tender, No Organomegaly, No Distention, No Abnormal Bruit, No Mass, Pelvis Stable (Female) Exam: Normal External Exam, Normal Speculum Exam, Normal Bimanual Exam Rectal (Female) Exam: Normal Exam, Normal Rectal Tone Back Exam: Reports: Normal Inspection, Full Range of Motion Extremities: Normal Inspection, Normal Range of Motion, Non-Tender, No Pedal Edema, Normal Capillary Refill Skin: Reports: Warm, Dry, Intact Wound/Incisions: Reports: Healing Well Neurological: Reports: No New Focal Deficit Psy/Mental Status: Reports: Alert, Normal Affect, Normal Mood
[2018-05-20] MEDS: Prenatal Multivitamin with Calcium/Folic Acid/Iron Tab PO SCH (10:00)
== END 2018-05-20 16:30 | disposition home or self-care (01) | DRG 560 ==
LOC: JD.OBCHECK 04:13 → JD.OB 04:14 → JD.OBCHECK 05:04 → JD.OB 05:05 → OBSVTOIN 05-18 10:46 → JD.OB 05-18 10:47
PROVIDERS: ADMIT Obstetrics & Gynecology; ATTEND Obstetrics & Gynecology
PROC: 10E0XZZ Delivery of Products of Conception, External Approach (ICD-10-PCS; principal; 2018-05-18)
PROC: 6A550ZT Pheresis of Cord Blood Stem Cells, Single (ICD-10-PCS; 2018-05-18)
PROC: 0KQM0ZZ Repair Perineum Muscle, Open Approach (ICD-10-PCS; 2018-05-18)
PROC: 10H07YZ Insertion of Other Device into Products of Conception, Via Natural or Artificial Opening (ICD-10-PCS; 2018-05-18)
PROC: 00HU33Z Insertion of Infusion Device into Spinal Canal, Percutaneous Approach (ICD-10-PCS; 2018-05-18)
PROC: 3E0R3BZ Introduction of Anesthetic Agent into Spinal Canal, Percutaneous Approach (ICD-10-PCS; 2018-05-18)
DX: O24.420 Gestational diabetes mellitus in childbirth, diet controlled (principal); Z88.0 Allergy status to penicillin; N85.6 Intrauterine synechiae; O75.89 Other specified complications of labor and delivery; Z3A.38 38 weeks gestation of pregnancy; Z37.0 Single live birth; O70.1 Second degree perineal laceration during delivery; O99.344 Other mental disorders complicating childbirth; F32.9 Major depressive disorder, single episode, unspecified; F41.9 Anxiety disorder, unspecified
CPT/HCPCS: 36415; 51702; 59025; 59300; 59409; 82565; 82962; 83615; 84450; 84460; 84520; 84550; 85025; 86592; A9270-GY; J0690; J2300; J2590; J3010; J3490; J7120

== ENCOUNTER 2020-02-13 01:51 | Inpatient (IN) | payer BC ==
[2020-02-13] MEDS ORDERED: Sodium Chloride 0.9% 10 ML Syringe FLUSH PRN (07:50)
[2020-02-13] MEDS ORDERED: Misoprostol 25 MCG (1/4 of 100 MCG) Tab VAG ONE (08:00)
[2020-02-13] MEDS ORDERED: Oxytocin/Lactated Ringers 10 UNIT/1,000 ML BAG IV SCH (08:15)
[2020-02-13] MEDS ORDERED: ceFAZolin 2 GM in Premix Bag 1 BAG IV ONE (10:00)
[2020-02-13] MEDS ORDERED: diphenhydrAMINE 50 MG/ML SDV IVPUSH PRN (10:15)
[2020-02-13] MEDS ORDERED: ePHEDrine 50 MG/ML SDV IVPUSH PRN (10:15)
[2020-02-13] MEDS ORDERED: fentaNYL 100 MCG/2 ML SDV EPIDUR PRN (10:15)
[2020-02-13] MEDS: Lactated Ringers 1,000 ML IV SCH ×7 (10:15→22:55)
--- NOTE | 2020-02-13 12:44 | PCM.LDHP ---
L&D History of Present Illness - General Date of Service: 02/13/20 Admit Problem/Dx: Patient Status Order with Admit Dx/Problem 02/13/20 07:50 Patient Status [ADT] Routine Admission Diagnosis/Problem Admission Diagnosis/Problem Gestational diabetes mellitus Source of Information: Patient, Old Records - History of Present Illness Introduction:: 39 year old female at 38 weeks here for induction of labor for somewhat poorly controlled gestational diabetes. Fasting glucoses have been increasingly difficulty to maintain within normal limits. - Related Data Allergies/Adverse Reactions: Allergies Allergy/AdvReac Type Severity Reaction Status Date / Time Penicillins Allergy Rash Verified 02/13/20 08:57 Home Medications: Home Meds Vit with Ca/FA/Iron [ Plus Iron] 1 each PO DAILY tablet 05/20/18 [Rx] Cetirizine HCl [All Day Allergy] 10 mg PO DAILY PRN 02/13/20 [History] Ferrous Sulfate [Iron] 325 mg PO DAILY 02/13/20 [History] Insulin Detemir [Levemir] 11 unit SUBCUT DAILY 02/13/20 [History] Levothyroxine [Synthroid] 50 mcg PO ACBREAKFAST 02/13/20 [History] Past Medical History HEENT History: Reports: Impaired Vision Other HEENT History: wears glasses CAFE LEAD History: Reports: , Spontaneous Other OB/BYN History: SAB x4 Psychiatric History: Reports: Anxiety, Depression Endocrine/Metabolic History: Reports: Diabetes, Gestational, Hyperparathyroidism - Past Surgical History Female Surgical History: Reports: Other (See Below) Other Female Surgeries/Procedures: hysteroscopy Social & Family History - Family History Family Medical History: Noncontributory - Tobacco Use Smoking Status *Q: Never Smoker Second Hand Smoke Exposure: No - Caffeine Use Caffeine Use: Reports: None - Recreational Drug Use Recreational Drug Use: No H&P Review of Systems - Review of Systems: Review Of Systems: See Below General: Reports: No Symptoms HEENT: Reports: No Symptoms Pulmonary: Reports: No Symptoms Cardiovascular: Reports: No Symptoms Gastrointestinal: Reports: No Symptoms Genitourinary: Reports: No Symptoms Musculoskeletal: Reports: No Symptoms Skin: Reports: No Symptoms Psychiatric: Reports: No Symptoms Neurological: Reports: No Symptoms Hematologic/Lymphatic: Reports: No Symptoms Immunologic: Reports: No Symptoms L&D Exam - Exam Exam: See Below - Vital Signs Vital Signs: Last Vital Signs Temp 36.4 C 02/13/20 07:50 Pulse 105 H 02/13/20 07:50 Resp 16 02/13/20 07:50 BP 124/83 02/13/20 07:50 Pulse Ox Weight: 13.018 kg - OB Specific Fundal Height In cm: 39 Contraction Intensity: Irritability Movement: Active Heart Tones: Present Heart Tones per Min: 145 Presentation: Vertex - Sanders Score Sanders Score Cervix Position: Posterior Sanders Score Consistency: Soft Sanders Score Effacement: 31-50% Sanders Score Dilation: 1-2 cm - Exam General: Alert, Oriented HEENT: Conjunctiva Clear, EOMI, Hearing Intact, Mucosa Moist & [place], PERRLA Neck: Trachea Midline Lungs: Normal Respiratory Effort Cardiovascular: Regular Rate, Regular Rhythm GI/Abdominal Exam: Normal Bowel Sounds, Soft, Non-Tender Genitourinary: Normal external exam, Normal speculum exam Back Exam: Normal Inspection, Full Range of Motion Extremities: Normal Inspection, Normal Range of Motion, Non-Tender, No Pedal Edema, Normal Capillary Refill Skin: Warm, Dry, Intact Neurological: Cranial Nerves Intact, Reflexes Equal Bilateral Psychiatric: Alert, Normal Affect, Normal Mood - Patient Data Lab Results Last 24 hrs: Laboratory Results - last 24 hr 02/13/20 02/13/20 02/13/20 Range/Units 08:17 08:17 08:21 WBC 8.00 (3.98-10.04) K/mm3 RBC 4.84 (3.98-5.22) M/mm3 Hgb 12.1 (11.2-15.7) gm/dl Hct 39.1 (34.1-44.9) % MCV 80.8 D (79.4-94.8) fl MCH 25.0 L (25.6-32.2) pg MCHC 30.9 L (32.2-35.5) g/dl RDW Std Deviation 58.4 H (36.4-46.3) fL Plt Count 216 (182-369) K/mm3 MPV 10.8 (9.4-12.3) fl POC Glucose 83 (70-105) mg/dL SARS-CoV-2 RNA (RT-PCR) (NEGATIVE) Blood Type O POSITIVE Gel Antibody Screen Negative 02/13/20 Range/Units 08:30 WBC (3.98-10.04) K/mm3 RBC (3.98-5.22) M/mm3 Hgb (11.2-15.7) gm/dl Hct (34.1-44.9) % MCV (79.4-94.8) fl MCH (25.6-32.2) pg MCHC (32.2-35.5) g/dl RDW Std Deviation (36.4-46.3) fL Plt Count (182-369) K/mm3 MPV (9.4-12.3) fl POC Glucose (70-105) mg/dL SARS-CoV-2 RNA (RT-PCR) Negative (NEGATIVE) Blood Type Gel Antibody Screen Result Diagrams: 02/13/20 08:17 Problem List Initiated/Reviewed/Updated: Yes Orders Last 24hrs: Active Orders 24 hr Category Date Time Status Patient Status [ADT] Routine ADT 02/13/20 07:50 Active Blood Glucose Check, Bedside [RC] 1200 Care 02/13/20 08:02 Active Communication Order [RC] ASDIRECTED Care 02/13/20 07:50 Active Communication Order [RC] ASDIRECTED Care 02/13/20 07:50 Active Communication Order [RC] ASDIRECTED Care 02/13/20 07:50 Active Communication Order [RC] ASDIRECTED Care 02/13/20 10:16 Active Cooling Warming Measures [RC] ASDIRECTED Care 02/13/20 10:16 Active Monitoring [RC] INTERMITTENT Care 02/13/20 07:50 Active Notify Provider [RC] ASDIRECTED Care 02/13/20 07:50 Active Notify Provider [RC] ASDIRECTED Care 02/13/20 10:15 Active Notify Provider [RC] ASDIRECTED Care 02/13/20 10:16 Active Oxygen Therapy [RC] ASDIRECTED Care 02/13/20 10:16 Active Peripheral IV Care [RC] . DIRECTED Care 02/13/20 07:51 Active Pulse Oximetry [RC] ASDIRECTED Care 02/13/20 10:16 Active Vital Signs [RC] ASDIRECTED Care 02/13/20 07:50 Active Consistent Carbohydrate Diet [DIET] Diet 02/13/20 Breakfast Active PATIENT RETYPE [BBK] Routine Lab 02/13/20 10:07 Ordered RAPID PLASMA REAGIN,RPR [CHEM] Routine Lab 02/13/20 08:17 Received Bupivacaine/fentaNYL/NS [fentaNYL/Bupivacaine/NS 2 MCG- Med 02/13/20 10:15 Active 0.125% 100 ML] 100 ml EPIDUR ASDIRECTED PRN Lactated Ringers [Ringers, Lactated] 1,000 ml Med 02/13/20 08:00 Active IV ASDIRECTED Oxytocin/Lactated Ringers [Pitocin in LR 10 Units/1,000 Med 02/13/20 08:15 Active ML] 10 unit in 1,000 ml IV TITRATE Oxytocin/Lactated Ringers [Pitocin in LR 10 Units/1,000 Med 02/13/20 08:15 Active ML] 10 unit in 1,000 ml IV TITRATE Sodium Chloride 0.9% [Saline Flush] Med 02/13/20 07:50 Active 10 ml FLUSH ASDIRECTED PRN ceFAZolin [Ancef] 1 gm Med 02/13/20 18:00 Active Premix Bag 1 bag IV Q8H diphenhydrAMINE [Benadryl] Med 02/13/20 10:15 Active 25 mg IVPUSH Q6H PRN ePHEDrine [ePHEDrine sulfate] Med 02/13/20 10:15 Active 5 mg IVPUSH ASDIRECTED PRN fentaNYL [Sublimaze] Med 02/13/20 10:15 Active 100 mcg EPIDUR Q3H PRN Peripheral IV Insertion Adult [OM.PC] Routine Oth 02/13/20 07:50 Ordered Medication Orders Diphenhydramine HCl (Benadryl) 25 mg IVPUSH Q6H PRN PRN Reason: pruritis Ephedrine Sulfate (Ephedrine Sulfate) 5 mg IVPUSH ASDIRECTED PRN PRN Reason: Hypotension Fentanyl (Sublimaze) 100 mcg EPIDUR Q3H PRN PRN Reason: Pain Fentanyl/Bupivacaine HCl (Fentanyl/Bupivacaine/Ns 2 Mcg-0.125% 100 Ml) 100 ml EPIDUR ASDIRECTED PRN PRN Reason: Pain Lactated Ringer's (Ringers, Lactated) 1,000 mls @ 40 mls/hr IV ASDIRECTED MARQUES Last Admin: 02/13/20 10:15 Dose: 40 mls/hr Documented by: [id number] Oxytocin/Lactated Ringer's (Pitocin In Lr 10 Units/1,000 Ml) 10 unit in 1,000 mls @ 12 mls/hr IV TITRATE MARQUES; Protocol Oxytocin/Lactated Ringer's (Pitocin In Lr 10 Units/1,000 Ml) 10 unit in 1,000 mls @ 500 mls/hr IV TITRATE MARUQES; Protocol Cefazolin Sodium/Dextrose 1 gm (/ Premix) 50 mls @ 100 mls/hr IV Q8H MARQUES Sodium Chloride (Saline Flush) 10 ml FLUSH ASDIRECTED PRN PRN Reason: Keep Vein Open Assessment/Plan Comment:: Induction for GDM Cytotec and ancef for GBS. Monitor closely. Pitocin at noon if cervical change with cytotec. Anesthesia consult prior for BMI
[2020-02-13] MEDS: Oxytocin/Lactated Ringers 10 UNIT/1,000 ML BAG IV SCH (12:45)
--- NOTE | 2020-02-13 12:45 | PCM.PNLD ---
Labor Progress Note - VS & Meds Vital Signs: Last Vital Signs Temp 36.4 C 02/13/20 07:50 Pulse 105 H 02/13/20 07:50 Resp 16 02/13/20 07:50 BP 124/83 02/13/20 07:50 Pulse Ox Active Medications: Current Medications Diphenhydramine HCl (Benadryl) 25 mg IVPUSH Q6H PRN PRN Reason: pruritis Ephedrine Sulfate (Ephedrine Sulfate) 5 mg IVPUSH ASDIRECTED PRN PRN Reason: Hypotension Fentanyl (Sublimaze) 100 mcg EPIDUR Q3H PRN PRN Reason: Pain Fentanyl/Bupivacaine HCl (Fentanyl/Bupivacaine/Ns 2 Mcg-0.125% 100 Ml) 100 ml EPIDUR ASDIRECTED PRN PRN Reason: Pain Lactated Ringer's (Ringers, Lactated) 1,000 mls @ 40 mls/hr IV ASDIRECTED MARQUES Last Admin: 02/13/20 10:15 Dose: 40 mls/hr Documented by: Oxytocin/Lactated Ringer's (Pitocin In Lr 10 Units/1,000 Ml) 10 unit in 1,000 mls @ 12 mls/hr IV TITRATE MARQUES; Protocol Oxytocin/Lactated Ringer's (Pitocin In Lr 10 Units/1,000 Ml) 10 unit in 1,000 mls @ 500 mls/hr IV TITRATE MARQUES; Protocol Cefazolin Sodium/Dextrose 1 gm (/ Premix) 50 mls @ 100 mls/hr IV Q8H MARQUES Sodium Chloride (Saline Flush) 10 ml FLUSH ASDIRECTED PRN PRN Reason: Keep Vein Open Discontinued Medications Cefazolin Sodium/Dextrose 2 gm (/ Premix) 50 mls @ 100 mls/hr IV ONETIME ONE Stop: 02/13/20 10:29 Last Admin: 02/13/20 10:15 Dose: 100 mls/hr Documented by: Misoprostol (Cytotec) 50 mcg VAG ONETIME ONE Stop: 02/13/20 08:01 Last Admin: 02/13/20 08:20 Dose: 50 mcg Documented by: - Uterine Contractions Contraction Intensity: Irritability - Monitoring Heart Rate (FHR) Variability: Moderate (6-25 bmp) Accelerations: Present, 15x15 Decelerations: None Strip Review: Category I - Vaginal Exam Dilation (cm): 2 Effacement (Percent): 70 Station: -2 Cervical Position: Midposition - Labor Progress (Free Text) Labor Progress: Cervix soft and more anterior. Patient with some difficulty tolerating exam. AROM later this evening if better tolerated.
[2020-02-13] MEDS: Bupivacaine/fentaNYL/NS 100 ML Bag EPIDUR PRN ×2 (14:18→22:42)
--- NOTE | 2020-02-13 14:53 | PCM.PREANE ---
Preanesthetic Assessment - Procedure Proposed Procedure: epidural - Anesthesia/Transfusion/Family Hx Anesthesia History: Prior Anesthesia Without Reaction Family History of Anesthesia Reaction: No Transfusion History: No Prior Transfusion(s) Intubation History: Unknown - Review of Systems General: Fatigue Pulmonary: No Symptoms Cardiovascular: No Symptoms Gastrointestinal: Abdominal Pain (labor) Neurological: No Symptoms Other: Reports: Diabetes (gestational), Thyroid Problems (hypothyroid) - Physical Assessment Vital Signs: Last Vital Signs Temp 36.4 C 02/13/20 07:50 Pulse 105 H 02/13/20 07:50 Resp 16 02/13/20 07:50 BP 124/83 02/13/20 07:50 Pulse Ox Height: 1.6 m Weight: 13.018 kg ASA Class: 3 Mental Status: Alert & Oriented x3 Airway Class: Mallampati = 2 Dentition: Reports: Normal Dentition Thyro-Mental Finger Breadths: 2 Mouth Opening Finger Breadths: 2 ROM/Head Extension: Full Lungs: Clear to Auscultation, Normal Respiratory Effort Cardiovascular: Regular Rate, Regular Rhythm - Lab Values: Laboratory Last Values WBC 8.00 K/mm3 (3.98-10.04) 02/13/20 08:17 RBC 4.84 M/mm3 (3.98-5.22) 02/13/20 08:17 Hgb 12.1 gm/dl (11.2-15.7) 02/13/20 08:17 Hct 39.1 % (34.1-44.9) 02/13/20 08:17 MCV 80.8 fl (79.4-94.8) D 02/13/20 08:17 MCH 25.0 pg (25.6-32.2) L 02/13/20 08:17 MCHC 30.9 g/dl (32.2-35.5) L 02/13/20 08:17 RDW Std Deviation 58.4 fL (36.4-46.3) H 02/13/20 08:17 Plt Count 216 K/mm3 (182-369) 02/13/20 08:17 MPV 10.8 fl (9.4-12.3) 02/13/20 08:17 POC Glucose 91 mg/dL (70-105) 02/13/20 12:56 SARS-CoV-2 RNA (RT-PCR) Negative (NEGATIVE) 02/13/20 08:30 Blood Type O POSITIVE 02/13/20 08:17 Gel Antibody Screen Negative 02/13/20 08:17 - Allergies Allergies/Adverse Reactions: Allergies Allergy/AdvReac Type Severity Reaction Status Date / Time Penicillins Allergy Rash Verified 02/13/20 08:57 - Anesthesia Plan Pre-Op Medication Ordered: None - Acknowledgements Anesthesia Type Planned: Epidural Pt an Appropriate Candidate for the Planned Anesthesia: Yes Alternatives and Risks of Anesthesia Discussed w Pt/Guardian: Yes Pt/Guardian Understands and Agrees with Anesthesia Plan: Yes PreAnesthesia Questionnaire HEENT History: Reports: Impaired Vision Other HEENT History: wears glasses Gastrointestinal History: Reports: GERD ORDER ADMINISTRATOR History: Reports: , Spontaneous Other OB/BYN History: SAB x4 Psychiatric History: Reports: Anxiety, Depression Endocrine/Metabolic History: Reports: Diabetes, Gestational, Hyperparathyroidism - Past Surgical History Female Surgical History: Reports: Other (See Below) Other Female Surgeries/Procedures: hysteroscopy - SUBSTANCE USE Smoking Status *Q: Never Smoker Tobacco Use Within Last Twelve Months: No Second Hand Smoke Exposure: No Recreational Drug Use History: No - HOME MEDS Home Medications: Home Meds Vit with Ca/FA/Iron [ Plus Iron] 1 each PO DAILY tablet 05/20/18 [Rx] Cetirizine HCl [All Day Allergy] 10 mg PO DAILY PRN 02/13/20 [History] Ferrous Sulfate [Iron] 325 mg PO DAILY 02/13/20 [History] Insulin Detemir [Levemir] 11 unit SUBCUT DAILY 02/13/20 [History] Levothyroxine [Synthroid] 50 mcg PO ACBREAKFAST 02/13/20 [History] - CURRENT (IN HOUSE) MEDS Current Meds: Current Medications Diphenhydramine HCl (Benadryl) 25 mg IVPUSH Q6H PRN PRN Reason: pruritis Ephedrine Sulfate (Ephedrine Sulfate) 5 mg IVPUSH ASDIRECTED PRN PRN Reason: Hypotension Fentanyl (Sublimaze) 100 mcg EPIDUR Q3H PRN PRN Reason: Pain Last Admin: 02/13/20 14:18 Dose: 100 mcg Documented by: Fentanyl/Bupivacaine HCl (Fentanyl/Bupivacaine/Ns 2 Mcg-0.125% 100 Ml) 100 ml EPIDUR ASDIRECTED PRN PRN Reason: Pain Last Admin: 02/13/20 14:18 Dose: 100 ml Documented by: Lactated Ringer's (Ringers, Lactated) 1,000 mls @ 40 mls/hr IV ASDIRECTED MARQUES Last Admin: 02/13/20 14:18 Dose: 40 mls/hr Documented by: Oxytocin/Lactated Ringer's (Pitocin In Lr 10 Units/1,000 Ml) 10 unit in 1,000 mls @ 12 mls/hr IV TITRATE MARQUES; Protocol Last Admin: 02/13/20 12:45 Dose: 2 munits/min, 12 mls/hr Documented by: Oxytocin/Lactated Ringer's (Pitocin In Lr 10 Units/1,000 Ml) 10 unit in 1,000 mls @ 500 mls/hr IV TITRATE MARQUES; Protocol Cefazolin Sodium/Dextrose 1 gm (/ Premix) 50 mls @ 100 mls/hr IV Q8H MARQUES Sodium Chloride (Saline Flush) 10 ml FLUSH ASDIRECTED PRN PRN Reason: Keep Vein Open Discontinued Medications Cefazolin Sodium/Dextrose 2 gm (/ Premix) 50 mls @ 100 mls/hr IV ONETIME ONE Stop: 02/13/20 10:29 Last Admin: 02/13/20 10:15 Dose: 100 mls/hr Documented by: Misoprostol (Cytotec) 50 mcg VAG ONETIME ONE Stop: 02/13/20 08:01 Last Admin: 02/13/20 08:20 Dose: 50 mcg Documented by:
[2020-02-13] MEDS: ceFAZolin 1 GM in Premix Bag 1 BAG IV SCH (18:01)
[2020-02-14] MEDS ORDERED: Bupivacaine 0.25% 10 ML SDV ONE
[2020-02-14] MEDS ORDERED: Acetaminophen 325 MG Tab PO ONE (00:26)
--- NOTE | 2020-02-14 02:19 | PCM.SN.2 ---
- Free Text/Narrative Note: Stage I - Patient presented for induction of labor for gestational diabetes. Ancef for GBS. Cytotec x 1 then pitocin. Progressed to complete with epidural anesthesia. Stage II -- of viable female, weight 3280, 8/9 APGARS at 154. Head delivered in controlled manner over intact perineum. Body and shoulders atraumatically. To maternal abdomen. Positive cry. Stage III - of intact placenta. 3vc. Small 2nd degree laceration repaired with 3-0 vicryl. EBL 100.
[2020-02-14] MEDS: Oxytocin/Lactated Ringers 10 UNIT/1,000 ML BAG IV SCH (02:28)
[2020-02-14] MEDS ORDERED: Benzocaine/Menthol 20%-0.5% Spray 56 GM Canister TOP PRN (02:52)
[2020-02-14] MEDS ORDERED: Hydrocortisone Acetate 25 MG Supp RECTAL PRN (02:52)
[2020-02-14] MEDS ORDERED: Docusate Sodium 100 MG Cap PO PRN (02:52)
[2020-02-14] MEDS ORDERED: Witch Hazel Medicated Pads 40/Jar TOP PRN (02:52)
[2020-02-14] MEDS: ceFAZolin 1 GM in Premix Bag 1 BAG IV SCH (05:24)
--- NOTE | 2020-02-14 07:21 | PCM48HPAN ---
Post Anesthesia Note - EVALUATION WITHIN 48HRS OF ANESTHETIC Vital Signs in Normal Range: Yes Patient Participated in Evaluation: Yes Respiratory Function Stable: Yes Airway Patent: Yes Cardiovascular Function Stable: Yes Hydration Status Stable: Yes Pain Control Satisfactory: Yes Nausea and Vomiting Control Satisfactory: Yes Mental Status Recovered: Yes Vital Signs: Last Vital Signs Temp 36.4 C 02/13/20 07:50 Pulse 105 H 02/13/20 07:50 Resp 16 02/13/20 07:50 BP 124/83 02/13/20 07:50 Pulse Ox
[2020-02-14] MEDS: Ibuprofen 600 MG Tab PO PRN ×3 (07:48→20:20)
[2020-02-15] MEDS: Ibuprofen 600 MG Tab PO PRN (06:15)
--- NOTE | 2020-02-15 07:58 | PCM.DCSUM1 ---
Discharge Summary - Hospital Course Diagnosis: Stroke: No - Discharge Data Discharge Date: 02/15/20 Discharge Disposition: Home, Self-Care 01 Condition: Good - Referral to Home Health Primary Care Physician: Abi Sumner MD - Patient Instructions Diet: Usual Diet as Tolerated Activity: No Strenuous Activities Driving: May Drive Today Showering/Bathing: May Shower Notify Provider of: Fever, Increased Pain, Swelling and Redness, Drainage, Nausea and/or Vomiting - Discharge Plan *PRESCRIPTION DRUG MONITORING PROGRAM REVIEWED*: No *COPY OF PRESCRIPTION DRUG MONITORING REPORT IN PATIENT FLORIDALMA: No Home Medications: Home Meds Vit with Ca/FA/Iron [ Plus Iron] 1 each PO DAILY tablet 05/20/18 [Rx] Cetirizine HCl [All Day Allergy] 10 mg PO DAILY PRN 02/13/20 [History] Ferrous Sulfate [Iron] 325 mg PO DAILY 02/13/20 [History] Insulin Detemir [Levemir] 11 unit SUBCUT DAILY 02/13/20 [History] Levothyroxine [Synthroid] 50 mcg PO ACBREAKFAST 02/13/20 [History] Referrals: Abi Sumner MD [Primary Care Provider] - (2 weeks) - Discharge Summary/Plan Comment DC Time >30 min.: No - General Info Date of Service: 02/15/20 Functional Status: Reports: Pain Controlled - Review of Systems General: Reports: No Symptoms HEENT: Reports: No Symptoms Pulmonary: Reports: No Symptoms Cardiovascular: Reports: No Symptoms Gastrointestinal: Reports: No Symptoms Genitourinary: Reports: No Symptoms Musculoskeletal: Reports: No Symptoms Skin: Reports: No Symptoms Neurological: Reports: No Symptoms Psychiatric: Reports: No Symptoms - Patient Data Vitals - Most Recent: Last Vital Signs Temp 36.5 C 02/15/20 03:06 Pulse 90 02/15/20 03:06 Resp 14 02/15/20 03:06 BP 121/59 L 02/15/20 03:06 Pulse Ox 95 02/15/20 03:06 Weight - Most Recent: 130.952 kg I&O - Last 24 hours: Intake & Output 02/14/20 02/15/20 02/15/20 22:59 06:59 14:59 Intake Total 320 Balance 320 Lab Results - Last 24 hrs: Laboratory Results - last 24 hr 02/13/20 Range/Units 08:17 RPR Non-reactive (NONREACTIVE) Med Orders - Current: Current Medications Benzocaine/Menthol (Dermoplast Pain Relief [place]) 0 gm TOP ASDIRECTED PRN PRN Reason: Perineal Comfort Measure Last Admin: 02/14/20 03:25 Dose: 1 can Documented by: Docusate Sodium (Colace) 100 mg PO BID PRN PRN Reason: Constipation Hydrocortisone Acetate (Anucort-Hc) 25 mg RECTAL BID PRN PRN Reason: Hemorrhoid pain Ibuprofen (Motrin) 600 mg PO Q6H PRN PRN Reason: Mild pain or fever Last Admin: 02/15/20 06:15 Dose: 600 mg Documented by: Patito Mendiola ([facility]) 1 pad TOP ASDIRECTED PRN PRN Reason: Pain Last Admin: 02/14/20 03:25 Dose: 1 tub Documented by: Discontinued Medications Acetaminophen (Tylenol) 650 mg PO NOW ONE Stop: 02/14/20 00:27 Last Admin: 02/14/20 00:41 Dose: 650 mg Documented by: Bupivacaine HCl (Sensorcaine-Mpf 0.25%) 10 ml .ROUTE .STK-MED ONE Stop: 02/14/20 00:01 Diphenhydramine HCl (Benadryl) 25 mg IVPUSH Q6H PRN PRN Reason: pruritis Ephedrine Sulfate (Ephedrine Sulfate) 5 mg IVPUSH ASDIRECTED PRN PRN Reason: Hypotension Fentanyl (Sublimaze) 100 mcg EPIDUR Q3H PRN PRN Reason: Pain Last Admin: 02/13/20 14:18 Dose: 100 mcg Documented by: Fentanyl/Bupivacaine HCl (Fentanyl/Bupivacaine/Ns 2 Mcg-0.125% 100 Ml) 100 ml EPIDUR ASDIRECTED PRN PRN Reason: Pain Last Admin: 02/13/20 22:42 Dose: 100 ml Documented by: Lactated Ringer's (Ringers, Lactated) 1,000 mls @ 40 mls/hr IV ASDIRECTED MARQUES Last Admin: 02/13/20 22:55 Dose: 40 mls/hr Documented by: Oxytocin/Lactated Ringer's (Pitocin In Lr 10 Units/1,000 Ml) 10 unit in 1,000 mls @ 12 mls/hr IV TITRATE MARQUES; Protocol Last Admin: 02/14/20 02:28 Dose: 83.33 munits/min, 500 mls/hr Documented by: Oxytocin/Lactated Ringer's (Pitocin In Lr 10 Units/1,000 Ml) 10 unit in 1,000 m ls @ 500 mls/hr IV TITRATE MARQUES; Protocol Cefazolin Sodium/Dextrose 2 gm (/ Premix) 50 mls @ 100 mls/hr IV ONETIME ONE Stop: 02/13/20 10:29 Last Admin: 02/13/20 10:15 Dose: 100 mls/hr Documented by: Cefazolin Sodium/Dextrose 1 gm (/ Premix) 50 mls @ 100 mls/hr IV Q8H [facility] Last Admin: 02/14/20 05:24 Dose: Not Given Documented by: Misoprostol (Cytotec) 50 mcg VAG ONETIME ONE Stop: 02/13/20 08:01 Last Admin: 02/13/20 08:20 Dose: 50 mcg Documented by: Sodium Chloride (Saline Flush) 10 ml FLUSH ASDIRECTED PRN PRN Reason: Keep Vein Open - Exam General: Reports: Alert, Oriented HEENT: Reports: Pupils Equal, Pupils Reactive, EOMI, Mucous Membr. Moist/[place] Neck: Reports: Supple Lungs: Reports: Clear to Auscultation, Normal Respiratory Effort Cardiovascular: Reports: Regular Rate, Regular Rhythm GI/Abdominal Exam: Normal Bowel Sounds, Soft, Non-Tender, No Organomegaly, No Distention, No Abnormal Bruit, No Mass, Pelvis Stable Rectal (Female) Exam: Normal Exam Back Exam: Reports: Normal Inspection, Full Range of Motion Extremities: Normal Inspection, Normal Range of Motion, Non-Tender, No Pedal Edema, Normal Capillary Refill Skin: Reports: Warm, Dry, Intact Wound/Incisions: Reports: Healing Well Neurological: Reports: No New Focal Deficit Psy/Mental Status: Reports: Alert, Normal Affect, Normal Mood
== END 2020-02-15 09:26 | disposition home or self-care (01) | DRG 560 ==
LOC: JD.OB 01:51 → OBSVTOIN 02-14 01:51 → JD.OB 02-14 01:52 → EDSTATUS 02-25 07:06
PROVIDERS: ADMIT Obstetrics & Gynecology; ATTEND Obstetrics & Gynecology
PROC: 10E0XZZ Delivery of Products of Conception, External Approach (ICD-10-PCS; principal; 2020-02-14)
PROC: 10907ZC Drainage of Amniotic Fluid, Therapeutic from Products of Conception, Via Natural or Artificial Opening (ICD-10-PCS; 2020-02-14)
PROC: 3E033VJ Introduction of Other Hormone into Peripheral Vein, Percutaneous Approach (ICD-10-PCS; 2020-02-14)
PROC: 3E0P7VZ Introduction of Hormone into Female Reproductive, Via Natural or Artificial Opening (ICD-10-PCS; 2020-02-14)
PROC: 0KQM0ZZ Repair Perineum Muscle, Open Approach (ICD-10-PCS; 2020-02-14)
PROC: 3E0R3BZ Introduction of Anesthetic Agent into Spinal Canal, Percutaneous Approach (ICD-10-PCS; 2020-02-14)
PROC: 00HU33Z Insertion of Infusion Device into Spinal Canal, Percutaneous Approach (ICD-10-PCS; 2020-02-14)
DX: O24.429 Gestational diabetes mellitus in childbirth, unspecified control (principal); O99.284 Endocrine, nutritional and metabolic diseases complicating childbirth; E21.3 Hyperparathyroidism, unspecified; Z3A.38 38 weeks gestation of pregnancy; Z37.0 Single live birth; O70.1 Second degree perineal laceration during delivery; Z11.59 Encounter for screening for other viral diseases
CPT/HCPCS: 36415; 51702; 59025; 59409; 82962; 85027; 86592; 86850; 86900; 86901; A9270-GY; J0690; J2590; J3010; J3490; J7120; U0002

== ENCOUNTER 2021-04-14 08:47 | Day surgery (SDC) | payer BC ==
[~2021-04-14 08:47] MED LIST: Lactated Ringers 1,000 ML IV SCH; Lidocaine 1%/Sod Bicarbonate in NS 8.4% 1 ML Syringe IDERM PRN; Sodium Chloride 0.9% 10 ML Syringe FLUSH PRN
--- NOTE | 2021-04-14 09:10 | PCM.PREANE ---
Preanesthetic Assessment - Procedure Proposed Procedure: EGD and Colonoscopy - Anesthesia/Transfusion/Family Hx Anesthesia History: Prior Anesthesia Without Reaction Family History of Anesthesia Reaction: No Transfusion History: No Prior Transfusion(s) Intubation History: Unknown - Review of Systems General: No Symptoms Pulmonary: No Symptoms (ETOH: rarely), Cough (allergies) Cardiovascular: No Symptoms Gastrointestinal: No Symptoms Neurological: No Symptoms, Headache (migraines) Other: Reports: None, Easy Bruising, Thyroid Problems (hypothyroid), Sinus Problem (seasonal allergies), Depression, Anxiety - Physical Assessment NPO Status Date: 04/13/21 NPO Status Time: 23:00 Vital Signs: HR: 98 Sat: 97% Temp: 97.3 Resp: 20 B/P: 132/87 Height: 1.6 m Weight: 118 kg ASA Class: 3 Mental Status: Alert & Oriented x3 Airway Class: Mallampati = 2 Dentition: Reports: Normal Dentition, Caries Thyro-Mental Finger Breadths: 3 Mouth Opening Finger Breadths: 3 ROM/Head Extension: Full Lungs: Clear to Auscultation, Normal Respiratory Effort Cardiovascular: Regular Rate, Regular Rhythm, No Murmurs - Lab Values: All labs reviewed and noted and within acceptable ranges to proceed with scheduled procedure. - Allergies Allergies/Adverse Reactions: Allergies Allergy/AdvReac Type Severity Reaction Status Date / Time Penicillins Allergy Rash Verified 04/11/21 15:26 - Anesthesia Plan Pre-Op Medication Ordered: None - Acknowledgements Anesthesia Type Planned: MAC Pt an Appropriate Candidate for the Planned Anesthesia: Yes Alternatives and Risks of Anesthesia Discussed w Pt/Guardian: Yes Pt/Guardian Understands and Agrees with Anesthesia Plan: Yes PreAnesthesia Questionnaire HEENT History: Reports: Impaired Vision Other HEENT History: wears glasses Cardiovascular History: Reports: High Cholesterol Respiratory History: Reports: None Gastrointestinal History: Reports: GERD, Other (See Below) Other Gastrointestinal History: RUQ pain, bloody stools Genitourinary History: Reports: None 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: , Spontaneous Other OB/BYN History: SAB x4 Musculoskeletal History: Reports: None Neurological History: Reports: None Psychiatric History: Reports: Anxiety, Depression Endocrine/Metabolic History: Reports: Diabetes, Gestational, Hyperparathyroidism, Hypothyroidism Hematologic History: Reports: Anemia, Iron Deficiency Immunologic History: Reports: None Oncologic (Cancer) History: Reports: None Dermatologic History: Reports: None - Past Surgical History Head Surgeries/Procedures: Reports: None Cardiovascular Surgical History: Reports: None Respiratory Surgical History: Reports: None GI Surgical History: Reports: None Female Surgical History: Reports: Other (See Below) Other Female Surgeries/Procedures: hysteroscopy Endocrine Surgical History: Reports: None Neurological Surgical History: Reports: None Musculoskeletal Surgical History: Reports: None Oncologic Surgical History: Reports: None - SUBSTANCE USE Tobacco Use Status *Q: Never Tobacco User Recreational Drug Use History: No - HOME MEDS Home Medications: Home Meds Cetirizine HCl [All Day Allergy] 10 mg PO DAILY PRN 02/13/20 [History] Levothyroxine 75 mcg PO DAILY 04/11/21 [History] Sertraline [Zoloft] 100 mg PO DAILY 04/11/21 [History] - CURRENT (IN HOUSE) MEDS Current Meds: Current Medications Lactated Ringer's (Ringers, Lactated) 1,000 mls @ 125 mls/hr IV ASDIRECTED MARQUES Stop: 04/14/21 23:00 Lidocaine/Sodium Bicarbonate (Lidocaine 1%/Sod Bicarbonate In Ns 8.4% 1 Ml Syringe) 0.25 ml IDERM ONETIME PRN PRN Reason: Prior to IV Start Stop: 04/14/21 18:00 Sodium Chloride (Sodium Chloride 0.9% 10 Ml Syringe) 10 ml FLUSH ASDIRECTED PRN PRN Reason: Keep Vein Open Stop: 04/14/21 18:00
[2021-04-14] MEDS ORDERED: Propofol 200 MG/20 ML SDV ONE ×3 (10:12→10:38)
[2021-04-14] MEDS ORDERED: Midazolam 1 MG/ML 2 ML SDV ONE ×2 (10:12→10:33)
[2021-04-14] MEDS ORDERED: Lidocaine 1% 4 ML ONE (10:14)
[2021-04-14] MEDS ORDERED: Lactated Ringers 1,000 ML ONE (10:44)
--- NOTE | 2021-04-14 11:15 | PCM48HPAN ---
Post Anesthesia Note - EVALUATION WITHIN 48HRS OF ANESTHETIC Vital Signs in Normal Range: Yes Patient Participated in Evaluation: Yes Respiratory Function Stable: Yes Airway Patent: Yes Cardiovascular Function Stable: Yes Hydration Status Stable: Yes Pain Control Satisfactory: Yes Nausea and Vomiting Control Satisfactory: Yes Mental Status Recovered: Yes Vital Signs: Last Vital Signs Temp 36.3 C 04/14/21 08:40 Pulse 98 04/14/21 08:40 Resp 20 04/14/21 08:40 BP 132/87 04/14/21 08:40 Pulse Ox 97 04/14/21 08:40 - COMMENTS/OBSERVATIONS Free Text/Narrative:: no anesthesia complications noted
--- NOTE | 2021-04-14 12:27 | PROC ---
DATE OF OPERATION: 04/14/2021 SURGEON: Venkatesh Meraz MD PREOPERATIVE DIAGNOSIS: Melena and family history of gastric cancer. POSTOPERATIVE DIAGNOSES: 1. Mild gastritis in the antrum. 2. Normal colon. OPERATION PERFORMED: 1. Esophagogastroduodenoscopy. 2. Colonoscopy. ESTIMATED BLOOD LOSS: Minimal. ANESTHESIA: Monitored anesthesia care. COMPLICATIONS: None. INDICATIONS AND CONSENT: Ms. Schafer is a 40-year-old female who had an episode of diarrhea and jannet hematochezia several weeks ago. This episode happened over a couple of days and stopped. The patient has already returned to her baseline. However, due to a large amount of blood during that episode, the patient presented to the primary care doctor, and after evaluation, she was referred to me for possible procedure. I talked to the patient. She was very worried about this episode and she also reported that her aunt of gastric cancer at young age around age of 38 and 39. Therefore, she was concerned that she may have something like that too. Due to hematochezia, I recommended we pursue EGD and colonoscopy to evaluate. We discussed risks, benefits, and alternatives, and informed consent was obtained. DESCRIPTION OF PROCEDURE: The patient was taken to the procedure room, placed in a left lateral decubitus position. Monitored anesthesia care was induced. Time-out was performed and procedure was began. We began with an EGD. Scope was inserted into the mouth and taken all the way to the second portion of the duodenum. The duodenum was normal. In the antrum, there was mild gastritis localized in the antrum only. Biopsies with cold forceps were taken for histological examination. The body, fundus, and cardia of the stomach were examined and appeared normal. Retroflexion did not reveal any significant hiatal hernia. We went back to the GE junction which was at 37 cm from the incisors, this was regular and appeared normal. Air was suctioned out. The esophagus was examined as I withdrew the scope, and there was no other abnormalities in the esophagus. Exam was concluded. Then, we paid attention to the colonoscopy. Perianal and digital rectal exam were normal. Scope was inserted and taken all the way to the cecum. Appendiceal orifice, ileocecal valve were photographed. Ileocecal valve was intubated and terminal ileum was visualized and appeared normal. Due to diarrhea and the episode of hematochezia, decision was made to take random biopsies. The colon was examined from the cecum, ascending, hepatic flexure, all the way out to the rectum, all that appeared normal. There were no polyps or any other abnormalities. Random biopsies were taken in the cecum, ascending colon, transverse, sigmoid, and rectum for histological exam. On retroflexion, there was no abnormalities except for slight irritation in the distal rectum. Air was suctioned out and procedure was concluded. In summary, the patient had hematochezia; however, from this procedure, no clear source of hematochezia was identified. We will wait for pathology results and the patient will follow up in clinic in 1 week for discussion of her pathology. MMNADER /[id number]
== END 2021-04-14 12:10 | disposition home or self-care (01) ==
LOC: JD.SDS 08:47
PROVIDERS: ATTEND Surgery
DX: K29.50 Unspecified chronic gastritis without bleeding (principal); K92.1 Melena; E78.00 Pure hypercholesterolemia, unspecified; E03.9 Hypothyroidism, unspecified; E11.9 Type 2 diabetes mellitus without complications; Z88.0 Allergy status to penicillin; Z79.890 Hormone replacement therapy
CPT/HCPCS: 43239; 45380; 81025; J2250; J2704; J7120; 00813

== ENCOUNTER 2021-05-19 06:57 | Day surgery (SDC) | payer BC ==
[2021-05-19] MEDS ORDERED: Midazolam 1 MG/ML 2 ML SDV ONE ×2 (07:19→08:21)
[2021-05-19] MEDS ORDERED: Propofol 200 MG/20 ML SDV ONE (07:19)
[2021-05-19] MEDS ORDERED: Lidocaine 1% 4 ML ONE (07:19)
[2021-05-19] MEDS ORDERED: fentaNYL 250 MCG/5 ML SDV ONE (07:20)
[2021-05-19] MEDS ORDERED: Rocuronium 50 MG/5 ML Vial ONE (07:22)
[2021-05-19] MEDS ORDERED: Ondansetron 4 MG/2 ML SDV ONE (07:23)
[2021-05-19] MEDS ORDERED: Dexamethasone 4 MG/ML 5 ML MDV ONE (07:23)
--- NOTE | 2021-05-19 07:43 | PCM.PREANE ---
Preanesthetic Assessment - Procedure Proposed Procedure: laparoscopic cholecystectomy - Anesthesia/Transfusion/Family Hx Anesthesia History: Prior Anesthesia Without Reaction Family History of Anesthesia Reaction: No Transfusion History: No Prior Transfusion(s) Intubation History: Unknown - Review of Systems General: Other (cough from "allergies" ) Pulmonary: No Symptoms Cardiovascular: No Symptoms Gastrointestinal: No Symptoms Neurological: Headache (migraines ) Other: Reports: Thyroid Problems, Depression, Anxiety - Physical Assessment NPO Status Date: 05/18/21 NPO Status Time: 19:30 Vital Signs: 130/9898 % 98 HE 16 Height: 1.6 m ASA Class: 3 Mental Status: Alert & Oriented x3 Airway Class: Mallampati = 1 Dentition: Reports: Normal Dentition Thyro-Mental Finger Breadths: 3 Mouth Opening Finger Breadths: 4 ROM/Head Extension: Full Lungs: Clear to Auscultation, Normal Respiratory Effort Cardiovascular: Regular Rate, Regular Rhythm - Allergies Allergies/Adverse Reactions: Allergies Allergy/AdvReac Type Severity Reaction Status Date / Time Penicillins Allergy Rash Verified 05/16/21 17:36 - Blood Blood Available: No - Anesthesia Plan Pre-Op Medication Ordered: None - Acknowledgements Anesthesia Type Planned: General Anesthesia Pt an Appropriate Candidate for the Planned Anesthesia: Yes Alternatives and Risks of Anesthesia Discussed w Pt/Guardian: Yes Pt/Guardian Understands and Agrees with Anesthesia Plan: Yes PreAnesthesia Questionnaire HEENT History: Reports: Impaired Vision Other HEENT History: wears glasses Cardiovascular History: Reports: High Cholesterol Respiratory History: Reports: None Gastrointestinal History: Reports: GERD, Other (See Below) Other Gastrointestinal History: RUQ pain, bloody stools, gastritis Genitourinary History: Other Genitourinary History: Uterine Synechiae 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: , Spontaneous Other OB/BYN History: SAB x4 Musculoskeletal History: Reports: None Neurological History: Reports: None Psychiatric History: Reports: Anxiety, Depression Endocrine/Metabolic History: Reports: Diabetes, Gestational, Hyperparathyroidism, Hypothyroidism Hematologic History: Reports: Anemia, Iron Deficiency Immunologic History: Reports: None Oncologic (Cancer) History: Reports: None Dermatologic History: Reports: None - Past Surgical History Head Surgeries/Procedures: Reports: None Cardiovascular Surgical History: Reports: None Respiratory Surgical History: Reports: None GI Surgical History: Reports: None Female Surgical History: Reports: Other (See Below) Other Female Surgeries/Procedures: hysteroscopy Endocrine Surgical History: Reports: None Neurological Surgical History: Reports: None Musculoskeletal Surgical History: Reports: None Oncologic Surgical History: Reports: None - SUBSTANCE USE Tobacco Use Status *Q: Never Tobacco User Recreational Drug Use History: No - HOME MEDS Home Medications: Home Meds Cetirizine HCl [All Day Allergy] 10 mg PO DAILY PRN 02/13/20 [History] Levothyroxine 75 mcg PO DAILY 04/11/21 [History] Sertraline [Zoloft] 100 mg PO DAILY 04/11/21 [History] Ferrous Sulfate [Iron] 325 mg PO DAILY 05/16/21 [History] - CURRENT (IN HOUSE) MEDS Current Meds: Current Medications Lactated Ringer's (Ringers, Lactated) 1,000 mls @ 125 mls/hr IV ASDIRECTED MARQUES Stop: 05/19/21 23:00 Lidocaine/Sodium Bicarbonate (Lidocaine 1%/Sod Bicarbonate In Ns 8.4% 1 Ml Syringe) 0.25 ml IDERM ONETIME PRN PRN Reason: Prior to IV Start Stop: 05/19/21 18:00 Sodium Chloride (Sodium Chloride 0.9% 10 Ml Syringe) 10 ml FLUSH ASDIRECTED PRN PRN Reason: Keep Vein Open Stop: 05/19/21 18:00 Discontinued Medications Bupivacaine HCl/Epinephrine Bitart (Bupivacaine 0.5%/Epinephrine 1:200,000 50 Ml Mdv) Confirm Administered Dose 50 ml .ROUTE .STK-MED ONE Stop: 05/19/21 07:27 Dexamethasone (Dexamethasone 4 Mg/Ml 5 Ml Mdv) Confirm Administered Dose 20 mg .ROUTE .STK-MED ONE Stop: 05/19/21 07:24 Fentanyl (Fentanyl 250 Mcg/5 Ml Sdv) Confirm Administered Dose 250 mcg .ROUTE .STK-MED ONE Stop: 05/19/21 07:21 Lidocaine HCl (Xylocaine-Mpf 1%) Confirm Administered Dose 4 mls @ as directed .ROUTE .STK-MED ONE Stop: 05/19/21 07:20 Midazolam HCl (Midazolam 1 Mg/Ml 2 Ml Sdv) Confirm Administered Dose 2 mg .ROUTE .STK-MED ONE Stop: 05/19/21 07:20 Ondansetron HCl (Ondansetron 4 Mg/2 Ml Sdv) Confirm Administered Dose 4 mg .ROUTE .STK-MED ONE Stop: 05/19/21 07:24 Propofol (Propofol 200 Mg/20 Ml Sdv) Confirm Administered Dose 400 mg .ROUTE .STK-MED ONE Stop: 05/19/21 07:20 Rocuronium [employer] (Rocuronium 50 Mg/5 Ml Vial) Confirm Administered Dose 50 mg .ROUTE .STK-MED ONE Stop: 05/19/21 07:23
[2021-05-19] MEDS: Bupivacaine 0.5%/EPINEPHrine 1:200,000 50 ML MDV ONE ×2 (08:43→13:11)
[2021-05-19] MEDS ORDERED: Clindamycin Phosphate in D5W 900 MG in Premix Bag 1 BAG IV ONE ×2 (08:45)
[2021-05-19] MEDS ORDERED: Ketorolac 30 MG/ML SDV ONE (08:58)
[2021-05-19] MEDS ORDERED: Lactated Ringers 1,000 ML ONE (08:58)
[2021-05-19] MEDS ORDERED: Ketamine 500 mg/10 ML MDV ONE (09:15)
[2021-05-19] MEDS ORDERED: Ondansetron 4 MG/2 ML SDV IVPUSH PRN (10:12)
[2021-05-19] MEDS ORDERED: fentaNYL 100 MCG/2 ML SDV IVPUSH PRN (10:12)
[2021-05-19] MEDS ORDERED: HYDROmorphone 0.5 MG/0.5 ML Syringe IVPUSH PRN (10:12)
--- NOTE | 2021-05-19 10:12 | PCM.POSTAN ---
POST ANESTHESIA ASSESSMENT - MENTAL STATUS Mental Status: Other (drowsy ) - VITAL SIGNS Vital Signs: Last Vital Signs Temp 36.4 C 05/19/21 10:04 Pulse 91 05/19/21 10:04 Resp 12 05/19/21 10:04 BP 132/67 05/19/21 10:04 Pulse Ox 100 05/19/21 10:04 - RESPIRATORY Respiratory Status: Respiratory Rate WNL, Airway Patent, O2 Saturation Stable - CARDIOVASCULAR CV Status: Pulse Rate WNL, Blood Pressure Stable - GASTROINTESTINAL GI Status: No Symptoms - PAIN Pain Score: 0 - POST OP HYDRATION Hydration Status: Adequate & Stable
[2021-05-19] MEDS ORDERED: ceFAZolin 1 GM Vial ONE (10:23)
--- NOTE | 2021-05-19 10:32 | OR ---
DATE OF OPERATION: 05/19/2021 SURGEON: Venkatesh Meraz MD PREOPERATIVE DIAGNOSIS: Symptomatic cholelithiasis. POSTOPERATIVE DIAGNOSIS: Symptomatic cholelithiasis. OPERATION PERFORMED: Laparoscopic cholecystectomy. ANESTHESIA: General endotracheal anesthesia with local anesthetic consisting of 0.5% bupivacaine with epinephrine. COMPLICATIONS: None. ESTIMATED BLOOD LOSS: 5 mL. NEED FOR SKILLED ASSISTANCE: Skilled assistance was provided by our nurse practitioner, Trina Linocln. She assisted with patient positioning, retraction during the operation as well as skin closure at the end of the operation. INDICATIONS AND CONSENT: The patient is a 40-year-old female who presented to the clinic with episodic right upper quadrant pain. The patient had been evaluated initially with EGD and colonoscopy. EGD only noted gastritis for which she was placed on acid blocking medication. However, her right upper quadrant pain persisted, and she had a right upper quadrant ultrasound that revealed gallstones without any other abnormalities. Due to symptoms and imaging findings, diagnosis of symptomatic cholelithiasis was made. The patient was offered gallbladder removal, and we discussed risks, benefits, and alternatives, and the informed consent was obtained in clinic. DESCRIPTION OF PROCEDURE: The patient was taken to the operating room, placed in supine position, and was padded appropriately. SCDs were placed. The patient was secured, and general endotracheal anesthesia was induced. Then, the abdomen was prepped and draped in the usual sterile fashion. Formal time-out was performed prior to the start of the procedure. We began the procedure by injecting local anesthetic in the infraumbilical position. Then, incision was made. Umbilical stalk was elevated, and a Veress needle was inserted into the abdomen, and the abdomen was insufflated to 15 mmHg. Then, a 12 mm trocar was placed at this position under direct visualization of laparoscope. Upon entry to the abdomen, the abdomen was quickly surveyed, and there were no obvious signs of injury due to the Veress needle or trocar insertion. Three additional 5 mm trocars were placed, 1 in the subxiphoid area and 2 in the right subcostal. Then, the gallbladder was grasped and elevated cranially. The Calot's triangle was dissected until the critical view of safety was obtained. At this point, 5 mm clips were placed on the cystic duct as well as cystic artery, 3 of them in total, and these structures were transected such that 2 clips remained in situ. Then, the gallbladder was taken off the gallbladder fossa with electrosurgery without any injuries. All bleeding points were controlled with electrosurgery. Then, the gallbladder was placed into the EndoCatch bag. The dissection was reviewed again and appeared to be hemostatic. The gallbladder was removed through the infraumbilical position, and the fascia at this site was closed with 0 Vicryl stitches using Alcides-Cleveland device at the skin level. All 4 sites were closed at the skin level with 4-0 Monocryl. Dermabond was applied. This ended the procedure. At the end of the procedure, all counts were correct x2. The patient was awakened, extubated, and taken to the recovery area. The patient will be allowed to return home today and follow up in clinic in 2 weeks for postop check. DASH /[id number] MTDZaid
--- NOTE | 2021-05-19 14:05 | PCM48HPAN ---
Post Anesthesia Note - EVALUATION WITHIN 48HRS OF ANESTHETIC Vital Signs in Normal Range: Yes Patient Participated in Evaluation: Yes Respiratory Function Stable: Yes Airway Patent: Yes Cardiovascular Function Stable: Yes Hydration Status Stable: Yes Pain Control Satisfactory: Yes Nausea and Vomiting Control Satisfactory: Yes Mental Status Recovered: Yes Vital Signs: Last Vital Signs Temp 36.7 C 05/19/21 12:00 Pulse 77 05/19/21 12:00 Resp 16 05/19/21 12:00 BP 129/89 05/19/21 12:00 Pulse Ox 96 05/19/21 12:00
== END 2021-05-19 12:32 | disposition home or self-care (01) ==
LOC: JD.SDS 06:57
PROVIDERS: ATTEND Surgery
DX: K80.10 Calculus of gallbladder with chronic cholecystitis without obstruction (principal); K21.9 Gastro-esophageal reflux disease without esophagitis; Z79.899 Other long term (current) drug therapy
CPT/HCPCS: 47562; J1100; J1885; J2250; J2405; J2704; J2710; J3010; J3490; J7120; 00790; J0690

== ENCOUNTER 2021-11-04 09:06 | Emergency (ER) | payer BC ==
[2021-11-04] MEDS ORDERED: Acetaminophen/HYDROcodone 325-5 MG Tab PO ONE (11:51)
== END 2021-11-04 12:15 | disposition home or self-care (01) ==
LOC: JD.ED 09:06
DX: M54.50 Low back pain, unspecified (principal); Z88.0 Allergy status to penicillin; Z79.899 Other long term (current) drug therapy
CPT/HCPCS: 72100; 99283; A9270; 99284

== ENCOUNTER 2023-05-22 10:36 | Emergency (ER) | payer BC ==
[2023-05-22] MEDS ORDERED: Albuterol/Ipratropium 3.0-0.5 MG/3 ML Neb Soln NEB ONE ×2 (11:20→12:21)
[2023-05-22 12:37] LABS: CORONAVIRUS COVID-19 NAA NEGATIVE (NEGATIVE); INFLUENZA A NAA NEGATIVE (NEGATIVE); RESPIRATORY SYNCYTIAL VIR NAA NEGATIVE (NEGATIVE)
== END 2023-05-22 13:20 | disposition home or self-care (01) ==
LOC: JD.ED 10:36
DX: J40 Bronchitis, not specified as acute or chronic (principal); K21.9 Gastro-esophageal reflux disease without esophagitis; E78.00 Pure hypercholesterolemia, unspecified; Z20.822 Contact with and (suspected) exposure to COVID-19; Z79.899 Other long term (current) drug therapy; Z88.0 Allergy status to penicillin
CPT/HCPCS: 0241U; 36415; 71046; 85379; 94640; 99284; 99283; J7620-GY